=== PATIENT | female | born 1930 | race Caucasian/White ===

== ENCOUNTER 2016-09-13 09:53 | Observation (INO) | payer MEDICARE ==
[2016-09-13] VITALS (10 sets, daily range): BP systolic 100–152; BP diastolic 51–72; PULSE 62–75; RESP 14–19; O2SAT 90–98
[~2016-09-13] VITALS: Ht 162.6 cm; Wt 70.5 kg
[~2016-09-13 09:53] MED LIST: ACET325T51 PO; ASPI-973 PO; CHOL200025 PO; CITA20TA11 PO; OMEP20CA11 PO; SIMV20TA4 PO
--- NOTE | 2016-09-13 10:02 | ED.REPORT ---
HPI-Back Pain 40 and Over Date of Service Sep 13, 2016 ED Provider: Otis Oneal Patient is an 86 year old female with a hx of GERD and hyperlipidemia who presents to the ED via EMS complaining of intermittent mid back pain between her shoulders onset this morning around 0830. She denies a mechanism of injury. Associated symptoms include nausea, weakness, mild SOB, and chills. She denies chest pain, vomiting, abdominal pain, dysuria, diarrhea, cold symptoms, or any other symptoms. She takes a daily aspirin. Nursing Notes Stated Complaint: BACK PAIN Chief Complaint: Back Pain or Injury Nursing Notes Reviewed: Yes Allergies: Coded Allergies: Penicillins (Verified Allergy, Unknown, 09/13/16) iodine (Verified Allergy, Unknown, 09/13/16) Uncoded Allergies: CODEINE (Ingr Allergy) (Allergy, Unknown, Y, 12/10/03) COEDINE, IODINE, DEMEROL, SULFA, PCN, THIAMINE, ANTIBOTI (Allergy, Unknown , 12/10/03) MEPERIDINE; FENTANYL (Ingr Allergy) (Allergy, Unknown, Y, 12/10/03) SULFA (Allergy, Unknown, 12/03/08) Sulfa (Allergy, Unknown, 12/10/03) Thiamine (Allergy, Unknown, 12/10/03) Scheduled Aspirin (Aspirin) 81 Mg Tablet 81 MG PO HS Cholecalciferol (Vitamin D3) (Vitamin D3) 2,000 Unit Tablet 2,000 UNIT PO DAILY Citalopram (Citalopram) 20 Mg Tablet 20 MG PO QAM Omeprazole (Omeprazole) 20 Mg Capsule.dr 20 MG PO DAILY Simvastatin (Simvastatin) 20 Mg Tablet 20 MG PO HS Scheduled PRN Acetaminophen (Acetaminophen) 325 Mg Tablet 650 MG PO Q4H PRN PRN For Pain General Time Seen by MD: 10:02 Chief Complaint Back pain Hx Obtained From: Patient, Spouse Arrived By: Ambulance Sudden in Onset?: Yes Onset Occurred: 1 - 4 hours ago Symptom Duration: Since onset Risk Factors )( AAA Risk Stratification Abdominal Aortic Aneurysm Risk: No Hypertension, No Prior AAA Risk factors reviewed )( TAD Risk Stratification No High intensity wt lifting, No Hypertension, No Risk factors reviewed Past Medical History Past Medical History hearing impaired anxiety depression hepatitis brain tumor hyperlipidemia Reports: GERD Reports: Dementia Past Surgical History left artifical hip (replaced x2) brain tumor removal L rotator cuff breast biopsy Reports: Appendectomy, Cholecystectomy, Hysterectomy Family History Mother: [place] at age 50, at 75 Smoking History Never Smoker Social History Alcohol Use: Denies alcohol use Other Social History: Good social support, Review of Systems Constitutional: Reports: Chills, Weakness - generalized, Denies: Fever Respiratory: Reports: Shortness of breath, Denies: Non-productive cough Cardiovascular: Denies: Chest pain GI: Reports: Nausea, Denies: Abdominal pain, Diarrhea, Vomiting Female: Denies: Dysuria Musculoskeletal: Reports: Back pain Complete sys rev & neg: except as marked. Physical Exam Initial Vital Signs Vital Signs (First) Date Time Temp Pulse Resp B/P Pulse Ox O2 Delivery O2 Flow Rate FiO2 09/13/16 09:57 36.7 75 18 152/72 Room Air 09/13/16 10:45 94 Initial VS: Reviewed, Vital signs abnormal Head / Eyes: Atraumatic, Normocephalic Neck: Full range of motion Skin: Warm, Dry Psychiatric: Mood/affect normal, Behavior normal, Normal thought content General/Constitutional: Awake, Alert Distress / Hydration: Positive: Distress mild Respiratory / Chest: Breath sounds NL, Breath sounds = bilat, No respiratory distress, No chest tenderness, No chest wall deformity Cardiovascular: Heart rate NL, Regular rhythm, Heart sounds NL Abdomen: Atraumatic, Soft, Non-tender Back: Atraumatic, Non-tender, No midline vertebral tend, No muscle spasm Neurologic: Oriented X3, Speech NL Interpretation & Diagnostics Lab Results Interpretation Result Diagram: 09/13/16 1030 09/13/16 1030 Test 09/13/16 10:30 White Blood Count 6.2th/mm3 (3.8-10.1) Red Blood Count 4.37mil/mm3 (3.90-5.20) Hemoglobin 13.7g/dL (12.0-15.6) Hematocrit 40.4% (35.0-46.0) Mean Corpuscular Volume 92.4fL (81-100) Mean Corpuscular Hemoglobin 31.4pg (27.0-35.0) Mean Corpuscular Hemoglobin Concent 33.9% (32.0-37.0) Red Cell Distribution Width 13.4% (12.3-15.4) Platelet Count 308bil/L (150-400) Neutrophils (%) (Auto) 61.3% (40-74) Lymphocytes (%) (Auto) 26.8% (14-46) Monocytes (%) (Auto) 10.4% (4-12) Eosinophils (%) (Auto) 0.8% (0-5) Basophils (%) (Auto) 0.5% (0-3) Prothrombin Time 9.7sec (8.1-12.5) Prothromb Time International Ratio 0.91ratio Activated Partial Thromboplast Time 24.3sec (22.8-33.0) D-Dimer 0.59mg/L FEU (<0.50) Sodium Level 141mEq/L (134-144) Potassium Level 4.0mEq/L (3.5-5.2) Chloride Level 104mEq/L (97-108) Carbon Dioxide Level 22mmol/L (18-29) Blood Urea Nitrogen 16mg/dL (8-27) Creatinine 0.67mg/dL (0.57-1.00) Estimat Glomerular Filtration Rate 120mL/min (>59) Glucose Level 104mg/dL (60-99) Calcium Level 9.6mg/dL (8.5-10.1) Magnesium Level 1.8mg/dL (1.6-2.6) Total Bilirubin 0.4mg/dL (0.0-1.2) Aspartate Amino Transf (AST/SGOT) 22U/L (0-50) Alanine Aminotransferase (ALT/SGPT) 22U/L (0-32) Alkaline Phosphatase 86U/L (25-165) Troponin T 0.010ug/L (0.0-0.011) Pro-B-Type Natriuretic Peptide 158.9pg/mL (0-738) Total Protein 7.0g/dL (6.4-8.4) Albumin 4.0g/dL (3.4-5.0) ECG Interpretation ECG Interpretation: sinus rate 68 inferior Q waves, old no acute ischemic changes Time: 10:21 Interpreted by: ED physician X-Ray Chest Interpretation Chest Xray Interpretation: IMPRESSION: Normal for age. Her pain is not seen. Dictated by: Blaise Mercado M.D. on 09/13/2016 at 11:03 Approved by: Blaise Mercado M.D. on 09/13/2016 at 11:04 View: Portable, 1 view Interpretation / Wet Read by: Interpret - Radiologist Re-Eval/Medical Decision Med Decision/Clinical Course Concern for acute coronary syndrome. Pulmonary embolism and aortic dissection seem unlikely given the age adjusted normal d-dimer. Symmetric blood pressures on both arms. Not hypertensive. Will start heparin. The prior records patient had a stress test but not recently. Re-Evaluation/Progress #1: Time of Eval: 11:33 Re-Evaluation/Progress Note: Rechecked pt who is now experiencing palpitations. Re-Evaluation/Progress #2: Time of Eval: 11:56 Re-Evaluation/Progress Note: Rechecked patient. Discussed plan for admission. Patient understands and agrees with plan. All questions addressed at this time. Consultation : Referral / Consult Name: Braydon Balderrama Consulted With: Hospitalist Call Returned at: 12:26 Tobacco Farmworker: Will see patient, Agrees with eval, Agrees with plan, Accepts admit Note: Discussed pt's case. Accepts admit. Counseled Regarding: Diagnosis, Lab results, Need for admission Discharge & Departure Impression: Primary Impression: Chest pain Chest pain type: unspecified Qualified Code: R07.9 - Chest pain, unspecified Disposition: ADMITTED TO HOSPITAL Discharge Condition All VS Reviewed: Yes Condition: Stable Referrals: Evelio Doe MD (PCP) [employer] Attestation Portions of this note were transcribed by Rosemarie Jameson. I, Dr. Oneal personally performed the history, physical exam and medical decision-making; I reviewed and confirmed the accuracy of the information in the transcribed note. Signed by: Gene Mcdaniel, 09/13/16 copies to: Evelio Doe MD, Timothy S DO Sep 13, 2016 10:02 ROSEMARIE JAMESON Sep 13, 2016 10:14
[2016-09-13] MEDS ORDERED: Nitroglycerin 2% 1 Gm Ointment TOPICAL ONE (10:15)
[2016-09-13] MEDS ORDERED: Ondansetron 2 mg/mL 2 mL Inj IVPUSH ONE (10:15)
[2016-09-13 10:41] LABS: BASOPHILS % (AUTO) 0.5 % (0-3); EOSINOPHILS % (AUTO) 0.8 % (0-5); MONOCYTES % (AUTO) 10.4 % (4-12); Mean Corpuscular Hemoglobin 31.4 pg (27.0-35.0); Mean Corpuscular Volume 92.4 fL (81-100); NEUTROPHILS % (AUTO) 61.3 % (40-74); Platelet Count 308 bil/L (150-400)
[2016-09-13 11:01] LABS: D-Dimer 0.59 mg/L FEU (<0.50); INR 0.91 ratio
--- NOTE | 2016-09-13 11:05 | DRSVH ---
PROCEDURE: X-RAY CHEST ONE VIEW, PORTABLE ([id number]) INDICATIONS: chest/back pain TECHNIQUE: One view of the chest was acquired. COMPARISON: [facility], CR, XR CHEST 1VW (PORTABLE), 01[facility]16[facility]2015, 8:37[facility], 12:55. FINDINGS: Surgical changes and devices: None. Lungs and pleura: No pleural effusions or pneumothorax. Lungs are clear. Mediastinum: Mediastinal contours appear normal. Heart size is normal. Bones and chest wall: No suspicious bony lesions. Overlying soft tissues appear unremarkable. IMPRESSION: Normal for age. Her pain is not seen. Dictated by: Blaise Mercado M.D. on 09/13/2016 at 11:03 Approved by: Blaise Mercado M.D. on 09/13/2016 at 11:04
[2016-09-13 11:08] LABS: TROPONIN T 0.01 ug/L (0.0-0.011)
[2016-09-13 11:19] LABS: Magnesium 1.8 mg/dL (1.6-2.6)
[2016-09-13] MEDS ORDERED: Heparin 5,000 Unit/mL Inj IVPUSH ONE (12:10)
[2016-09-13] MEDS ORDERED: Heparin 25K Unit/500mL 0.45 NS 25,000 UNIT in IV Premix 1 EACH IV ONE (12:10)
[2016-09-13] MEDS ORDERED: Alum-Mag Hydrox-Simeth 30 mL Suspension PO PRN ×2 (12:30→17:35)
[2016-09-13] MEDS ORDERED: Ondansetron 2 mg/mL 2 mL Inj IVPUSH PRN ×2 (12:30→17:35)
--- NOTE | 2016-09-13 17:18 | NUR ---
Social Work Note: Initial Assessment Data& Assessment: EMR reviewed. SW met with pt at bedside to discuss discharge planning, SW role explained. Discharge Planning Checklist provided. Sary Lane is a 89 year old female admitted under observation status on 09/13/2016 for chest pain and rule out ACS. Ptt has AARP Medicare complete HMO insurance coverage and sees Evelio Doe MD for primary care. Pt lives with her at [facility] and is independent at baseline with all ADL's. Pt continues to drive and ambulates with a cane at baseline. MD and RN does not identify any concerns with pt capacity for self care at this time. Pt children live in the community and will transport pt home when medically ready. Pt does not have HH or SNF hx, LTC insurance or VA benefits. Pt has DPOA/AD paperwork completed, SW requested a copy when possible. Pt denies any other needs at this time. No other discharge needs identified at this time. SW to continue to follow should any MD orders or discharge needs arise. Plan: Anticipated discharge back home via POV when medically ready. Pt denies any other needs at this time. No other discharge needs identified at this time. SW to continue to follow should any MD orders or discharge needs arise. THOMAS Alonso Addendum: 09/13/16 at 1726 by RAMESH JUAREZ Amended: Links added.
[2016-09-13] MEDS ORDERED: Polyethylene Glycol (PEG) 17 Gm Powder PO PRN (17:35)
--- NOTE | 2016-09-13 18:16 | NUR ---
MOC ADMIT NOTE PT ARRIVED FROM ER PRESENTING WITH PAIN IN BACK BETWEEN SHOULDER BLADES NITRO ADMINISTERED IN ER. PAIN CONTINUING BETWEEN SHOULDER BLADES AT A 4/10 ALERT AND ORIENTED WITH UNREMARKABLE VITAL SIGNS. EATING AND VOIDING INDEPENDENTLY. PT BEING MONITORED ON TELE 62 WITH REGULAR SINUS RHYTHM. PT HISTORY OF ANXIETY, DEPRESSION AND PANIC ATTACKS, NO DISTRESS NOTED. SUPPORTIVE AND FAMILY. HEPARIN THERAPY D/C AND SALINE LOCKED.
--- NOTE | 2016-09-13 18:22 | PCM.HPMED ---
Subjective Date of Service Sep 13, 2016 Primary Provider: Admitting Physician: Braydon Balderrama Primary Care Physician: Evelio Doe MD Attending Physician: Braydon Balderrama Chief Complaint: back and chest pain History of Present Illness: 86 year old female with past history notable for anxiety, hiatal hernia, OA, and meningioma s/p surgery presents with acute and intermittent back pain ( between shoulders) as well as mid-sternal to left sided chest pain/pressure that began during breakfast on day of admission. This was associated with mild shortness of breath, lightheadedness, headache, and nausea. In the ED she received a one inch Nitro paste and currently she says that her symptoms have almost completely resolved. Review of Systems: Constitutional: Negative, except as otherwise mentioned in the history above. Ophthalmologic: Negative, except as otherwise mentioned in the history above. Cardiovascular: Negative, except as otherwise mentioned in the history above. Respiratory: Negative, except as otherwise mentioned in the history above. Gastrointestinal: Negative, except as otherwise mentioned in the history above. Genitourinary: Negative, except as otherwise mentioned in the history above. Musculoskeletal: Negative, except as otherwise mentioned in the history above. Neurological: Negative, except as otherwise mentioned in the history above. Psychiatric: Negative, except as otherwise mentioned in the history above. Hematologic/Lymphatic: Negative, except as otherwise mentioned in the history above. Allergic/Immunologic: Negative, except as otherwise mentioned in the history above. Allergies Coded Allergies: Penicillins (Verified Allergy, Unknown, 09/13/16) iodine (Verified Allergy, Unknown, 09/13/16) Uncoded Allergies: CODEINE (Ingr Allergy) (Allergy, Unknown, Y, 12/10/03) COEDINE, IODINE, DEMEROL, SULFA, PCN, THIAMINE, ANTIBOTI (Allergy, Unknown , 12/10/03) MEPERIDINE; FENTANYL (Ingr Allergy) (Allergy, Unknown, Y, 12/10/03) SULFA (Allergy, Unknown, 12/03/08) Sulfa (Allergy, Unknown, 12/10/03) Thiamine (Allergy, Unknown, 12/10/03) Home Medications Simvastatin 20 Mg PO HS Acetaminophen 650 Mg PO Q4H PRN Aspirin 81 Mg PO HS Citalopram 20 Mg PO QAM Omeprazole 20 Mg PO DAILY Cholecalciferol (Vitamin D3) 2,000 Unit PO DAILY Exam Vital Signs & I/O Vital Sign- Last 8 Hours Date Time Temp Pulse Resp B/P Pulse Ox O2 Delivery O2 Flow Rate FiO2 09/13/16 16:26 36.6 67 14 100/51 90 Room Air 09/13/16 14:30 65 18 125/65 97 Room Air 09/13/16 14:30 63 09/13/16 14:19 64 09/13/16 12:30 65 19 119/65 94 09/13/16 12:03 124/68 132/62 09/13/16 12:00 64 17 132/62 95 09/13/16 11:15 62 17 134/65 94 Room Air 09/13/16 10:45 75 16 94 Lab & Micro Results Laboratory Tests Test 09/13/16 10:30 09/13/16 18:27 White Blood Count 6.2th/mm3 (3.8-10.1) Red Blood Count 4.37mil/mm3 (3.90-5.20) Hemoglobin 13.7g/dL (12.0-15.6) Hematocrit 40.4% (35.0-46.0) Mean Corpuscular Volume 92.4fL (81-100) Mean Corpuscular Hemoglobin 31.4pg (27.0-35.0) Mean Corpuscular Hemoglobin Concent 33.9% (32.0-37.0) Red Cell Distribution Width 13.4% (12.3-15.4) Platelet Count 308bil/L (150-400) Neutrophils (%) (Auto) 61.3% (40-74) Lymphocytes (%) (Auto) 26.8% (14-46) Monocytes (%) (Auto) 10.4% (4-12) Eosinophils (%) (Auto) 0.8% (0-5) Basophils (%) (Auto) 0.5% (0-3) Prothrombin Time 9.7sec (8.1-12.5) Prothromb Time International Ratio 0.91ratio Activated Partial Thromboplast Time 24.3sec (22.8-33.0) D-Dimer 0.59mg/L FEU (<0.50) Sodium Level 141mEq/L (134-144) Potassium Level 4.0mEq/L (3.5-5.2) Chloride Level 104mEq/L (97-108) Carbon Dioxide Level 22mmol/L (18-29) Blood Urea Nitrogen 16mg/dL (8-27) Creatinine 0.67mg/dL (0.57-1.00) Estimat Glomerular Filtration Rate 120mL/min (>59) Glucose Level 104mg/dL (60-99) Calcium Level 9.6mg/dL (8.5-10.1) Magnesium Level 1.8mg/dL (1.6-2.6) Total Bilirubin 0.4mg/dL (0.0-1.2) Aspartate Amino Transf (AST/SGOT) 22U/L (0-50) Alanine Aminotransferase (ALT/SGPT) 22U/L (0-32) Alkaline Phosphatase 86U/L (25-165) Troponin T 0.010ug/L (0.0-0.011) Pro-B-Type Natriuretic Peptide 158.9pg/mL (0-738) Total Protein 7.0g/dL (6.4-8.4) Albumin 4.0g/dL (3.4-5.0) Result Diagram: 09/13/16 1030 09/13/16 1030 PMH 1. Gastroesophageal Reflux 2. Hiatal Hernia 3. Anxiety 4. Depression 5. Osteo arthritis Surgical History Appendectomy Cholecystectomy MED Bladder suspension. Family History Mother with coronary artery disease Social History Hx Alcohol Use: Yes ("Wine once in a while") Hx Substance Use: No Hx Tobacco Use: No Smoking Status: Never Smoker Exam Vital Signs Vital Sign - Last Date Time Temp Pulse Resp B/P Pulse Ox O2 Delivery O2 Flow Rate FiO2 09/13/16 16:26 36.6 67 14 100/51 90 Room Air General: Alert, Oriented X3, Cooperative, No Acute Distress Head: Normal Eyes: Scleral Anicteric Nose: Mucous Membr Moist/Ridgely Mouth: Mucous Membr Moist/Ridgely Neck: Supple Chest & Lungs: Chest Wall Normal, Clear to auscultation & percussion Cardiovascular: Regular Rate/Rhythm Pulses: NL carotid, radial, femoral, DP, PT Abdomen: Non-tender, Non-distended, Normoactive bowel tones, Soft Extremities: No cyanosis/clubbing/edma bilat Neurological: Grossly Neurologically Intact, Normal Speech Lab and Diagnostics Result Diagram: 09/13/16 1030 09/13/16 1030 X-Rays, CTs and MRIs Date of Service: 09/13/16 1013 PROCEDURE: X-RAY CHEST ONE VIEW, PORTABLE ([id number]) IMPRESSION: Normal for age. Her pain is not seen. Dictated by: Blaise Mercado M.D. on 09/13/2016 at 11:03 Approved by: Blaise Mercado M.D. on 09/13/2016 at 11:04 12-lead ECG Sinus rhythm without significant ST elevation or depression. Q waves noted in the inferior leads. Assessment & Plan 86 year old female with past history notable for anxiety, hiatal hernia, OA, and meningioma s/p surgery presents with acute and intermittent back pain ( between shoulders) as well as mid-sternal to left sided chest pain/pressure that began during breakfast on day of admission. # Acute chest pain, present on admission. - Rule out myocardial infarction by cycling Trop - Echo - NM pharm stress test in AM - ASA daily - Statin - Check fast lipid panel # Acute back pain, present on admission. Resolved. - Cardiac workup as noted above - If symptoms persist or reoccur will consider CTA chest (will need pretreatment for history of iodine allergy) # GERD, chronic. - Continue with PPI # History of depression/anxiety. - Continue with home dose Citalopram Expected length of hospital stay is less than 2 midnights GI Prophylaxis: Proton Pump Inhibitor VTE Prophylaxis: Sub-Q Heparin (Unfractionated) Resuscitation Status: DNR/DNI:Do Not Resuscitate/Intubate (discussed and verified with patient) Time spent 50 min Braydon Balderrama Sep 13, 2016 18:22
[2016-09-14] MEDS: Heparin 5,000 Unit/mL Inj SUBQ SCH ×3 (00:24→16:30)
[2016-09-14 00:33] VITALS: BP 108/55; PULSE 68; RESP 17; O2SAT 95
--- NOTE | 2016-09-14 04:12 | NUR ---
Mobility/ NPO Assumed pt. care at 1930, alert and verbally responsive, SBA to the BR, encouraged use of FWW for safety, steady on feet, NPO after MN for stress test in AM, Pt. aware, vitals stable, no discomfort voiced this shift, call light in reach at all times.
[2016-09-14 04:50] VITALS: BP 130/70; PULSE 69; RESP 17; O2SAT 94
[2016-09-14 06:27] LABS: Mean Corpuscular Hemoglobin 31.2 pg (27.0-35.0); Mean Corpuscular Volume 93.6 fL (81-100)
[2016-09-14] MEDS ORDERED: Pantoprazole 40 mg ER24 Tablet PO SCH (06:30)
[2016-09-14 08:57] VITALS: BP 132/75; PULSE 68; RESP 18; O2SAT 95
[2016-09-14 10:27] VITALS: PULSE 78
--- NOTE | 2016-09-14 12:44 | DRSVH ---
[facility] [address] [place] [address] Echocardiogram Report Name: WESLEY BEDOLLA MStudy Date: 09/14/2016 Height: 64 in Hospital Exam Location: [facility] Weight: 155 lb Gender: Female BSA: 1.8 m2 : 1930 Age: 86 yrs BP: 130/70 mm Hg Reason For Study: Chest Pain Ordering Physician: HOSPITALIST [facility] Performed By: Deana Sears Ref[facility] Phys[facility] Interpretation Summary The left ventricle is normal in size. The ejection fraction is estimated to be 45-50%. There is mild global hypokinesis of the left ventricle. The right ventricle is normal in size and function. There is mild mitral regurgitation. The IVC is of normal diameter and collapses greater than 50% with a sniff. This suggests a low right atrial pressure of 3 mm Hg. Procedure: A two-dimensional transthoracic echocardiogram with color flow and Doppler was performed. The study quality was technically adequate. There is no prior echocardiogram noted for this patient. The patient was in normal sinus rhythm during the exam. Left Ventricle: The left ventricle is normal in size. Left ventricular wall thickness is borderline increased. There is no thrombus. A false chord is noted (normal variant). The ejection fraction is estimated to be 45-50%. There is mild global hypokinesis of the left ventricle. Assessment of diastolic parameters indicates a relaxation abnormality of the left ventricle, consistent with normal filling pressures. Right Ventricle: The right ventricle is normal in size and function. A calcified moderator band is seen in the right ventricle. The right ventricle appears to be hypertrophied. Atria: The left atrial size is normal. The right atrium is normal in size. The interatrial septum is intact with no evidence for an atrial septal defect. Mitral Valve: The mitral valve leaflets appear borderline thickened, but open well. The mitral valve leaflets are slightly calcified. There is mild mitral regurgitation. Aortic Valve: The aortic valve is not well visualized. The aortic valve is mildly calcified. There is no aortic valve stenosis. No aortic regurgitation is present. Tricuspid Valve: The tricuspid valve is not well visualized, but is grossly normal. There is trace tricuspid regurgitation. Pulmonary artery pressures cannot be estimated because of the lack of a measurable TR jet velocity. Pulmonic Valve: The pulmonic valve is not well visualized. Great Vessels: The aortic root is normal size. The ascending aorta could not be visualized. The IVC is of normal diameter and collapses greater than 50% with a sniff. This suggests a low right atrial pressure of 3 mm Hg. Pericardium/ Pleura There is no pericardial effusion. There is an anterior echo-free space consistent with a fat pad. There is no pleural effusion. MMode/2D Measurements & Calculations LVIDd: 5.0 cm RA long axis LVOT diam LVIDs: 4.3 cm LA A2 area: 16.0 cm : 2.0 cm FS: 13.0 % LA A4 area: 17.6 cm RA area IVSd: 1.2 cm LA length (vol): 4.9 cm LVPWd: 1.0 cm LA vol: 48.8 ml : 9.9 cm RA vol: 20.2 ml LA vol index: 27.8 ml/m2RA : 11.5 mm2 LV ornelas. diameter/BSA LV sys. diameter/BSA TAPSE: 2.3 cm (cm/m^2): 2.8 (cm/m^2): 2.5 Doppler Measurements & Calculations Ao V2 max: 97.3 cm/sec MV E max spike MV E/A: 0.54 PA V2 max Ao max P.8 mmHg : 49.9 cm/sec : 53.2 cm/sec Ao mean P.5 mmHg MV A max spike PA mean PG LVOT Max Spike : 92.9 cm/sec : 0.69 mmHg : 76.5 cm/sec BOO(I,D): 2.4 cm sev ratio: 0.75 MV dec time: 0.27 sec Ao V2 mean LV V1 max PG PA V2 mean : 77.3 cm/sec : 39.5 cm/sec Ao V2 VTI: 27.0 cm LV V1 VTI PA pr(Accel) : 20.1 cm : -0.41 mmHg BOO(V,D): 2.5 cm2 BOO indexed to BSA (cm^2/m^2): 1.4 Reading Physician:CHET
--- NOTE | 2016-09-14 12:45 | NUR ---
Nuc Med Pt transferred to sba to Nuc Med for stress test. Echo has been completed prior. Addendum: 09/14/16 at 1723 by GRACIELA BERMUDEZ RN Pt returned from Nuc Med. Pt to resume general heart healthy diet. Up to bathroom ind.
--- NOTE | 2016-09-14 14:36 | NUR ---
Case Management: CURRY and Medicare Part D pamphlet delivered and explained to pt.'s spouse at bedside. Signed original placed in chart. Copy left at bedside. Nisa Carrasquillo RN
--- NOTE | 2016-09-14 17:57 | PCM.DIMED ---
Discharge Instructions Date of Service Sep 14, 2016 Dates of Hospitalization Sep 13, 2016 at 12:23 Discharge Diagnosis Discharge Diagnosis # Acute chest pain, present on admission. Resolved - Unclear exact etiology - Ruled out myocardial infarction with negative cardiac enzymes # Echocardiogram shows: "mild global hypokinesis of the left ventricle" and requires further followup by primary care provider as outpatient. # Acute back pain, present on admission. Resolved. Unclear exact etiology but possibly musculoskeletal in nature # GERD, chronic. Stable. # History of depression/anxiety. Presumed stable. Diet Discharge Diet: Low fat, Low Sodium, Heart Healthy Activity Discharge Activity: No restrictions Call your provider Call your provider for: Fever or Chills, Shortness of breath, Bleeding, Chest pain, Weakness (unilateral) Patient Instructions Patient Instructions Seek immediate medical attention if any new or worsening signs or symptoms occur. Follow-up plan 1. Followup with primary care provider in 1-2 weeks. Follow-up Provider: Evelio Doe MD Provider: Ubaldo Gross MD, Masoud Sep 14, 2016 17:57
--- NOTE | 2016-09-14 18:13 | PCM.DC.MED ---
Discharge Summary Date of Service Sep 14, 2016 Dates of Hospitalization Date of Hospital Admission Sep 13, 2016 at 12:23 Date of Discharge: Sep 14, 2016 Providers: Admitting Physician: Braydon Balderrama Primary Care Physician: Evelio Doe MD Attending Physician: Braydon Balderrama Diagnosis at Time of Discharge Diagnosis at Time of Discharge # Acute chest pain, present on admission. Resolved - Unclear exact etiology - Ruled out myocardial infarction with negative cardiac enzymes # Echocardiogram shows: "mild global hypokinesis of the left ventricle" and requires further followup by primary care provider as outpatient. # Acute back pain, present on admission. Resolved. Unclear exact etiology but possibly musculoskeletal in nature # GERD, chronic. Stable. # History of depression/anxiety. Presumed stable. Procedures XRay, CTs & MRIs Date of Service: 09/13/16 1013 PROCEDURE: X-RAY CHEST ONE VIEW, PORTABLE ([id number]) IMPRESSION: Normal for age. Her pain is not seen. Dictated by: Blaise Mercado M.D. on 09/13/2016 at 11:03 Approved by: Blaise Mercado M.D. on 09/13/2016 at 11:04 ECG 12 Lead Sinus rhythm without significant ST elevation or depression. Q waves noted in the inferior leads. Cardiac Echo Impression Date of Service: 09/14/16 1800 Echocardiogram Report Interpretation Summary The left ventricle is normal in size. The ejection fraction is estimated to be 45-50%. There is mild global hypokinesis of the left ventricle. The right ventricle is normal in size and function. There is mild mitral regurgitation. The IVC is of normal diameter and collapses greater than 50% with a sniff. This suggests a low right atrial pressure of 3 mm Hg. Reading Physician:PM Brief History 86 year old female with past history notable for anxiety, hiatal hernia, OA, and meningioma s/p surgery presents with acute and intermittent back pain ( between shoulders) as well as mid-sternal to left sided chest pain/pressure that began during breakfast on day of admission. This was associated with mild shortness of breath, lightheadedness, headache, and nausea. In the ED she received a one inch Nitro paste and currently she says that her symptoms have almost completely resolved. Hospital Course # Acute chest pain, present on admission. Resolved - Ruled out myocardial infarction by negative Trop x 3 - Echo fairly unremarkable (as noted above) - NM pharm stress test negative (verbal report by Dr. Victor) # Acute back pain, present on admission. Resolved. - Cardiac workup as noted above - ? if symptoms musculoskeletal vs due to anxiety. # GERD, chronic. - Continued with PPI # History of depression/anxiety. - Continued with home dose Citalopram by day of discharge she denies any chest or back pain/discomfort. Exam Vital Signs (Last) Date Time Temp Pulse Resp B/P Pulse Ox O2 Delivery O2 Flow Rate FiO2 09/14/16 10:27 78 09/14/16 08:57 36.8 18 132/75 95 Room Air Exam General: Alert, Cooperative, No Acute Distress Head: Normal Eyes: Scleral Anicteric Nose: Mucous Membr Moist/Fossil Mouth: Mucous Membr Moist/Fossil Neck: Supple Chest & Lungs: Chest Wall Normal, Clear to auscultation bilat Cardiovascular: Regular Rate/Rhythm Abdomen: Non-tender, Non-distended, Normoactive bowel tones, Soft Extremities: No cyanosis/clubbing/edema bilat Neurological: Grossly Neurologically Intact, Normal Speech Test 09/13/16 10:30 09/14/16 05:30 09/14/16 10:00 Neutrophils (%) (Auto) 61.3% (40-74) Lymphocytes (%) (Auto) 26.8% (14-46) Monocytes (%) (Auto) 10.4% (4-12) Eosinophils (%) (Auto) 0.8% (0-5) Basophils (%) (Auto) 0.5% (0-3) Prothrombin Time 9.7sec (8.1-12.5) Prothromb Time International Ratio 0.91ratio Activated Partial Thromboplast Time 24.3sec (22.8-33.0) D-Dimer 0.59mg/L FEU (<0.50) Magnesium Level 1.8mg/dL (1.6-2.6) Total Bilirubin 0.4mg/dL (0.0-1.2) Aspartate Amino Transf (AST/SGOT) 22U/L (0-50) Alanine Aminotransferase (ALT/SGPT) 22U/L (0-32) Alkaline Phosphatase 86U/L (25-165) Pro-B-Type Natriuretic Peptide 158.9pg/mL (0-738) Total Protein 7.0g/dL (6.4-8.4) Albumin 4.0g/dL (3.4-5.0) White Blood Count 6.0th/mm3 (3.8-10.1) Red Blood Count 4.07mil/mm3 (3.90-5.20) Hemoglobin 12.7g/dL (12.0-15.6) Hematocrit 38.1% (35.0-46.0) Mean Corpuscular Volume 93.6fL (81-100) Mean Corpuscular Hemoglobin 31.2pg (27.0-35.0) Mean Corpuscular Hemoglobin Concent 33.3% (32.0-37.0) Red Cell Distribution Width 13.6% (12.3-15.4) Platelet Count 296bil/L (150-400) Sodium Level 140mEq/L (134-144) Potassium Level 4.7mEq/L (3.5-5.2) Chloride Level 103mEq/L (97-108) Carbon Dioxide Level 25mmol/L (18-29) Blood Urea Nitrogen 17mg/dL (8-27) Creatinine 0.64mg/dL (0.57-1.00) Estimat Glomerular Filtration Rate 127mL/min (>59) Glucose Level 98mg/dL (60-99) Calcium Level 9.2mg/dL (8.5-10.1) Triglycerides Level 299mg/dL (0-149) Cholesterol Level 203mg/dL (100-199) LDL Cholesterol, Calculated 95.200mg/dL (0-99) VLDL Cholesterol 59.800mg/dL HDL Cholesterol 48mg/dL (>39) Cholesterol/HDL Ratio 4.23 (0.0-4.4) Troponin T 0.010ug/L (0.0-0.011) Discharge Medications Discharge Medications Aspirin (Aspirin) 81 Mg Tablet 81 MG PO HS (Reported) Cholecalciferol (Vitamin D3) (Vitamin D3) 2,000 Unit Tablet 2,000 UNIT PO DAILY (Reported) Citalopram (Citalopram) 20 Mg Tablet 20 MG PO QAM (Reported) Omeprazole (Omeprazole) 20 Mg Capsule.dr 20 MG PO DAILY (Reported) Simvastatin (Simvastatin) 20 Mg Tablet 20 MG PO HS (Reported) As needed Acetaminophen (Acetaminophen) 325 Mg Tablet 650 MG PO Q4H PRN PRN For Pain ( Reported) Followup Plan Disposition: Home Follow-up plan 1. Followup with primary care provider in 1-2 weeks. Discharge Diet: Low fat, Low Sodium, Heart Healthy Discharge Activity: No restrictions Patient Instructions Seek immediate medical attention if any new or worsening signs or symptoms occur. Follow-up Provider: Evelio Doe MD Provider: Ubaldo Gross MD Time spent 35 min copies to: Evelio Doe MD; Ubaldo Gross MD, Masoud Sep 14, 2016 18:13
--- NOTE | 2016-09-14 18:27 | NUR ---
Discharge Pt d/c instructions given. No questions or concerns noted. Pt IV DC'd cath intact. Pt up dressed ind. All belongings accounted for. Pt A&O x 4. Steady gait. Transferred to car via w[place] by [facility]. Safe transfer.
--- NOTE | 2016-09-14 18:40 | DRSVH ---
PROCEDURE: 1 DAY PHARMACOLOGICAL STRESS TEST INDICATIONS: Chest pain. COMPARISON: None. Radiopharmaceutical: Stress dose 25.3 mCi of technetium 99 tetrofosmin Rest dose 8.7 mCi of technetium 99m tetrofosmin Patient presentation: Patient is 86-year-old woman with chest pain, hyperlipidemia and back pain. FINDINGS: Pharmacologic stress test: Following informed consent Lexiscan was infused per protocol. Resting EKG is normal. During pharmacologic stress test patient developed frequent monomorphic PVCs. There were n o significant ST segment changes. Raw data: Normal myocardial tracer uptake. Lung heart ratio is grossly normal. Myocardial perfusion imaging: No evidence of ischemia or prior infarct. There is a small mild apical fixed perfusion defect consistent with apical thinning artifact. Quantitative gated SPECT: At peak stress ejection fraction is 70%. Rest ejection fraction is 56%. No focal wall motion abnormalities seen. IMPRESSION: Normal pharmacologic stress test with myocardial perfusion imaging. Study was characterized by freque nt monomorphic PVCs at peak stress. There is no evidence of ischemia or prior infarct. Compared to prior study January 17, 2015, PVCs are new. Previously noted perfusion abnormalities at rest are no longer seen. Dictated by: Sofia Vitcor M.D. on 09/14/2016 at 18:34 Approved by: Sofia Victor M.D. on 09/14/2016 at 18:39
== END 2016-09-14 18:22 | disposition home or self-care (01) ==
LOC: SED 09:53 → EDBD 09:53 → EDUNIT# 09:53 → MOC 12:23
PROVIDERS: ADMIT Internal Medicine; ATTEND Internal Medicine
DX: R07.9 Chest pain, unspecified (principal); M54.9 Dorsalgia, unspecified; R93.1 Abnormal findings on diagnostic imaging of heart and coronary circulation; E78.5 Hyperlipidemia, unspecified; K21.9 Gastro-esophageal reflux disease without esophagitis; F32.9 Major depressive disorder, single episode, unspecified; F41.9 Anxiety disorder, unspecified; Z96.643 Presence of artificial hip joint, bilateral; Z86.011 Personal history of benign neoplasm of the brain; Z79.82 Long term (current) use of aspirin; K44.9 Diaphragmatic hernia without obstruction or gangrene; Z88.0 Allergy status to penicillin; Z91.041 Radiographic dye allergy status; Z66 Do not resuscitate
CPT/HCPCS: 36415; 71010; 78452; 80048; 80053; 80061; 81002; 83735; 83880; 84484; 85025; 85027; 85378; 85610; 85730; 93005; 93017; 96374; 96375; 99285; A9502; C8929; G0378; J0280; J1644; J2405; J2785